=== PATIENT | female | born 1980 | race Caucasian/White ===

== ENCOUNTER 2020-08-03 09:20 | Outpatient (CLI) | payer OTHER ==
[2020-08-03 13:34] LABS: BASOPHILS # (AUTO) 0.1 10^3/uL (0.0-0.1); BASOPHILS % (AUTO) 1.1 %; EOSINOPHILS # (AUTO) 0.1 10^3/uL (0.0-0.7); EOSINOPHILS % (AUTO) 1.4 %; HGB - HEMOGLOBIN 15.9 g/dL (12.0-16.0); LYMPHOCYTES # (AUTO) 1.8 10^3/uL (1.5-3.5); LYMPHOCYTES % (AUTO) 28.8 %; MEAN CORPUSCULAR HEMOGLOBIN 31.7 pg (27.0-31.0); MEAN CORPUSCULAR HGB CONC 33.8 g/dL (32.0-36.0); MEAN CORPUSCULAR VOLUME 93.6 fL (81.0-99.0); MEAN PLATELET VOLUME 10.3 fL (7.9-10.8); MONOCYTES # (AUTO) 0.4 10^3/uL (0.0-1.0); MONOCYTES % (AUTO) 5.8 %; NEUTROPHILS % (AUTO) 62.7 %; PLT - PLATELET COUNT 310 10^3/uL (130-450); RED BLOOD COUNT 5.02 10^6/uL (4.20-5.40); RED CELL DISTRIBUTION WIDTH 12.7 % (12.0-15.0); WHITE BLOOD COUNT 6.4 x10^3/uL (4.8-10.8)
[2020-08-03 13:56] LABS: THYROID STIMULATING HORMONE 1.51 uIU/mL (0.34-5.60)
[2020-08-03 13:59] LABS: FERRITIN 8.4 ng/mL (11.0-306.8)
[2020-08-03 14:05] LABS: % IRON SATURATION 12 % (20-50); ALBUMIN 4.1 g/dL (3.2-5.5); ALBUMIN/GLOBULIN RATIO 1.4 (1.0-2.2); ALKALINE PHOSPHATASE 51 IU/L (42-121); ALT ALANINE AMINOTRANSFERASE 33 IU/L (10-60); AST ASPARTATE AMINOTRANSFERASE 20 IU/L (10-42); BILIRUBIN,TOTAL 0.4 mg/dL (0.2-1.0); BUN - BLOOD UREA NITROGEN 10 mg/dL (6-20); CALCIUM 9.1 mg/dL (8.5-10.3); CARBON DIOXIDE - CO2 22 mmol/L (21-32); CHLORIDE 105 mmol/L (101-111); CHOLESTEROL 171 mg/dL; CREATININE 0.7 mg/dL (0.4-1.0); GFR - MDRD 92 (>89); GLUCOSE 103 mg/dL (70-100); HDL CHOLESTEROL 34 mg/dL; IRON 44 ug/dL (28-170); LDL CHOLESTEROL,CALCULATED 100 mg/dL; LDL/HDL RATIO 2.9 (<4.4); POTASSIUM 3.6 mmol/L (3.5-5.0); SODIUM 138 mmol/L (135-145); TOTAL IRON BINDING CAPACITY 353 ug/dL (250-450); TOTAL PROTEIN 7.1 g/dL (6.7-8.2); TRANSFERRIN 252 mg/dL (192-382); TRIGLYCERIDES 187 mg/dL; VLDL CHOLESTEROL 37 mg/dL
== END 2020-08-03 23:59 | disposition home or self-care (01) ==
LOC: LAB.WCP 09:20
PROVIDERS: ATTEND Registered Nurse
DX: F41.9 Anxiety disorder, unspecified (principal); F32.9 Major depressive disorder, single episode, unspecified; R53.83 Other fatigue
CPT/HCPCS: 36415; 80053; 80061; 82728; 83540; 83721; 84443; 84466; 85025

== ENCOUNTER 2022-03-22 12:18 | Outpatient (CLI) | payer OTHER ==
--- NOTE | 2022-03-22 13:14 | CT Report ---
PROCEDURE: Sinuses INDICATIONS: CHRONIC ETHMOID SINUSITIS TECHNIQUE: Noncontrast 3.0 mm axial images acquired from the frontal sinuses to the mid-sella, with coronal and sagittal reformats. For radiation dose reduction, the following was used: automated exposure control , adjustment of mA and/or kV according to patient size. COMPARISON: None. FINDINGS: Image quality: Excellent. Maxillary Sinuses: No bony remodeling or destruction. Sinuses are clear. The right maxillary sinus is small in size, without abnormal wall thickening. Ethmoid Air Cells: No bony remodeling or destruction. Sinuses are clear. Sphenoid Sinuses: No bony remodeling or destruction. Sinuses are clear. Frontal Sinuses: No bony remodeling or destruction. Sinuses are clear. Ostiomeatal Complexes: Ostiomeatal complexes are patent, yet they are constitutionally narrowed. Pérez ler cells are seen on the left. Miscellaneous: Visualized intra-orbital contents are normal. There is a left-sided yoko bullosa. Mild rightward nasal septal deviation is seen. IMPRESSION: No significant active paranasal sinus disease is seen. Left-sided yoko bullosa, with mild rightward nasal septal deviation. Narrowed ostiomeatal complexes, with Chasidy cell seen on the left. Small size of the right maxillary sinus. Reviewed by: Ravi Eastman MD on 03/22/2022 12:12 PM [facility] Approved by: Ravi Eastman MD on 03/22/2022 12:12 PM [facility] Station ID: [id number]
== END 2022-03-22 12:19 | disposition home or self-care (01) ==
LOC: DI 12:18
PROVIDERS: ATTEND Nurse Practitioner
DX: J34.2 Deviated nasal septum (principal)

== ENCOUNTER 2022-03-26 11:19 | Outpatient (CLI) | payer OTHER ==
[2022-03-26 12:01] VITALS: BP 122/81
== END 2022-03-26 11:20 | disposition home or self-care (01) ==
LOC: MAC.MOP 11:19
PROVIDERS: ATTEND Nurse Practitioner
DX: R00.2 Palpitations (principal)
CPT/HCPCS: 93246

== ENCOUNTER → 2022-04-20 | Outpatient (CLI) | payer OTHER | LOC: MAC.MOP 10:30 | PROVIDERS: ATTEND Nurse Practitioner | DX: I47.1 Supraventricular tachycardia (principal); I49.1 Atrial premature depolarization; I49.3 Ventricular premature depolarization | CPT/HCPCS: 93244 ==

== ENCOUNTER 2022-08-31 00:46 | Outpatient (CLI) | payer OTHER | END 2022-08-31 00:48 | disposition critical access hospital (66) | LOC: EMS 00:46 | DX: I46.9 Cardiac arrest, cause unspecified (principal) | CPT/HCPCS: A0425; A0433 ==

== ENCOUNTER 2022-08-31 00:59 | Emergency (ER) | payer OTHER ==
--- NOTE | 2022-08-31 01:08 | ED Physician Documentation ---
PD HPI CPR - Stated complaint Stated Complaint: CPR, ROSC - History obtained from History obtained from: Family (), EMS - Additional information Additional information: Patient arrives intubated by EMS. HPI is from EMS. Early inpatient stay, patient's arrives to the emergency department I was able to obtain further HPI from patient's . At approximately midnight, patient was sitting in bed awake watching TV with her when, per , patient put her hands to her head, said "ow", and within less than a minute, she laid down on the bed. The did not think anything was necessarily wrong but rapidly she began to exhibit sonorous respirations and at that point the patient realized that she was unconscious and unresponsive. He called 911 would was immediately instructed to start CPR. EMS arrived to find patient was in ventricular fibrillation and they attempted defibrillation with defibrillating shock; unfortunately, patient then went into asystole and thus CPR was started. On the first pulse check, they noted she had ROSC, but before she regained consciousness, she quickly went into pulseless ventricular tachycardia and rapidly again went into asystole. During the ensuing resuscitative efforts, the patient had an IV established and received a total of 6 rounds (1 mg per dose) of epinephrine, 3 ampules of IV lidocaine. She was intubated with a 7.0 ET tube, and an epinephrine drip was subsequently initiated. There was some resistance to intubation, and thus patient was given 2.5 mg of Versed IV by EMS as well as 100 mg IV succinylcholine. Per , patient does not have any medical history, does not take any prescription medications, and no known drug allergies. The only medical history he notes is regarding some seasonal allergies. Review of Systems Unable to obtain: Intubated PD PAST MEDICAL HISTORY - Past Medical History Past Medical History: No - Allergies Allergies/Adverse Reactions: Allergies Allergy/AdvReac Type Severity Reaction Status Date / Time No Known Drug Allergies Allergy Verified 08/31/22 01:11 PD ED PE NORMAL - Vitals Vital signs reviewed: Yes - General General: Well developed/nourished - Cardiac Cardiac: RRR, No murmur - Abdomen Abdomen: Soft, Non distended - Derm Derm: Normal color, Warm and dry - Extremities Extremities: No edema PD ED PE EXPANDED - General General: Unresponsive, Other (endotracheally intubated) - HEENT HEENT: Other (pupils are dilated but equal, sluggish and minimal reaction to light) - Cardiac Cardiac: Regular Rate, Regular Rhythm - Respiratory Respiratory: Other (Breath sounds are equal bilaterally with some mild scattered rhonchi. There is good chest rise with ventilations provided through the ET tube ) - Abdomen Abdomen: No: Distended Results - Vitals Vitals: Vital Signs - 24 hr 08/31/22 08/31/22 08/31/22 01:00 01:03 01:25 Temperature 34.0 C L 36.3 C L 35.3 C L Heart Rate 97 92 101 H Respiratory 29 H 21 26 H Rate Blood Pressure 115/81 H 135/125 H 129/88 H O2 Saturation 100 99 99 08/31/22 08/31/22 08/31/22 01:40 01:42 01:50 Temperature 35.3 C L 35.3 C L Heart Rate 112 H 111 H 99 Respiratory 30 H 28 H Rate Blood Pressure 128/93 H 121/89 H O2 Saturation 87 L 98 08/31/22 08/31/22 08/31/22 01:55 02:10 02:15 Temperature 35.3 C L 35.4 C L 35.4 C L Heart Rate 115 H 126 H 127 H Respiratory 27 H 17 25 H Rate Blood Pressure 121/89 H 81/65 L 76/58 L O2 Saturation 92 96 99 08/31/22 08/31/22 08/31/22 02:30 02:44 02:45 Temperature 35.5 C L 35.4 C L Heart Rate 126 H 126 H 124 H Respiratory 25 H 23 Rate Blood Pressure 82/63 L 100/77 O2 Saturation 98 95 08/31/22 08/31/22 08/31/22 03:00 03:15 03:30 Temperature 35.2 C L 35.0 C L 35.0 C L Heart Rate 120 H 124 H 128 H Respiratory 23 20 21 Rate Blood Pressure 93/79 95/72 97/71 O2 Saturation 100 97 98 Oxygen O2 Source Mechanical ventilator - EKG (time done) No standard instances EKG releavant findings:: EKG personally interpreted by author of this note. Relevant findings are: Rate: Rate (enter#) (97) Rhythm: NSR [place]: Normal Intervals: Prolonged [place] QRS: Normal Ischemia: ST depression (1mm II, III, aVF) Compare to prior EKG: Old EKG unavailable - Labs Labs: Laboratory Tests 08/31/22 08/31/22 08/31/22 01:12 01:20 01:20 WBC 20.4 H RBC 4.70 Hgb 14.0 Hct 46.5 MCV 98.9 MCH 29.8 MCHC 30.1 L RDW 13.0 Plt Count 291 MPV 10.5 Neut # (Auto) Not Reportable Lymph # (Auto) Not Reportable [place] # (Auto) Not Reportable Eos # (Auto) Not Reportable Baso # (Auto) Not Reportable Absolute Nucleated RBC Not Reportable Total Counted 100 Band Neuts % (Manual) 2 Abnorm Lymph % (Manual) 0 Nucleated RBC % Not Reportable Neutrophils # (Manual) 8.0 H Lymphocytes # (Manual) 11.2 H Monocytes # (Manual) 0.6 Eosinophils # (Manual) 0.6 Basophils # (Manual) 0.0 Differential Comment MANUAL DIFFERENTIAL Platelet Estimate NORMAL (130-450,000) RBC Morph Micro Appear NORMAL APPEARANCE PT 12.3 INR 1.1 APTT 137.0 H* Bld Gas Analysis Time Sample Site ABG pH ABG pCO2 ABG pO2 ABG HCO3 ABG Total CO2 ABG O2 Saturation ABG Base Excess Pillo Test Respiration Rate O2 Delivery Device Vent Mode Tidal Volume PEEP Sodium Potassium Chloride Carbon Dioxide Anion Gap BUN Creatinine Estimated GFR (MDRD) Glucose Calcium Total Bilirubin AST ALT Alkaline Phosphatase Troponin I High Sens Total Protein Albumin Globulin Albumin/Globulin Ratio Lipase Urine Color YELLOW Urine Clarity CLEAR Urine pH 6.5 Ur Specific [place] 1.020 Urine Protein NEGATIVE Urine Glucose (UA) NEGATIVE Urine Ketones NEGATIVE Urine Occult Blood NEGATIVE Urine Nitrite NEGATIVE Urine Bilirubin NEGATIVE Urine Urobilinogen 0.2 (NORMAL) Ur Leukocyte Esterase NEGATIVE Ur Microscopic Review NOT INDICATED Urine Culture Comments NOT INDICATED Urine Opiates Screen NEGATIVE Ur Oxycodone Screen NEGATIVE Urine Methadone Screen NEGATIVE Ur Propoxyphene Screen NEGATIVE Ur Barbiturates Screen NEGATIVE Ur Tricyclics Screen NEGATIVE Ur Phencyclidine Scrn NEGATIVE Ur Amphetamine Screen NEGATIVE U Methamphetamines Scrn NEGATIVE U Benzodiazepines Scrn NEGATIVE Urine Cocaine Screen NEGATIVE U Cannabinoids Screen NEGATIVE Serum Ketones SARS-CoV-2 (PCR) 08/31/22 08/31/22 08/31/22 01:20 01:20 01:20 WBC RBC Hgb Hct MCV MCH MCHC RDW Plt Count MPV Neut # (Auto) Lymph # (Auto) [place] # (Auto) Eos # (Auto) Baso # (Auto) Absolute Nucleated RBC Total Counted Band Neuts % (Manual) Abnorm Lymph % (Manual) Nucleated RBC % Neutrophils # (Manual) Lymphocytes # (Manual) Monocytes # (Manual) Eosinophils # (Manual) Basophils # (Manual) Differential Comment Platelet Estimate RBC Morph Micro Appear PT INR APTT Bld Gas Analysis Time Sample Site ABG pH ABG pCO2 ABG pO2 ABG HCO3 ABG Total CO2 ABG O2 Saturation ABG Base Excess Pillo Test Respiration Rate O2 Delivery Device Vent Mode Tidal Volume PEEP Sodium 139 Potassium 3.7 Chloride 107 Carbon Dioxide 7 L* Anion Gap 25.0 H BUN 13 Creatinine 1.2 H Estimated GFR (MDRD) 49 L Glucose 406 H Calcium 8.3 L Total Bilirubin 0.3 AST 128 H ALT 101 H Alkaline Phosphatase 65 Troponin I High Sens 128.8 H* Total Protein 5.6 L Albumin 3.0 L Globulin 2.6 Albumin/Globulin Ratio 1.2 Lipase 61 H Urine Color Urine Clarity Urine pH Ur Specific [place] Urine Protein Urine Glucose (UA) Urine Ketones Urine Occult Blood Urine Nitrite Urine Bilirubin Urine Urobilinogen Ur Leukocyte Esterase Ur Microscopic Review Urine Culture Comments Urine Opiates Screen Ur Oxycodone Screen Urine Methadone Screen Ur Propoxyphene Screen Ur Barbiturates Screen Ur Tricyclics Screen Ur Phencyclidine Scrn Ur Amphetamine Screen U Methamphetamines Scrn U Benzodiazepines Scrn Urine Cocaine Screen U Cannabinoids Screen Serum Ketones NEGATIVE SARS-CoV-2 (PCR) 08/31/22 08/31/22 08/31/22 01:36 02:30 03:01 WBC RBC Hgb Hct MCV MCH MCHC RDW Plt Count MPV Neut # (Auto) Lymph # (Auto) [place] # (Auto) Eos # (Auto) Baso # (Auto) Absolute Nucleated RBC Total Counted Band Neuts % (Manual) Abnorm Lymph % (Manual) Nucleated RBC % Neutrophils # (Manual) Lymphocytes # (Manual) Monocytes # (Manual) Eosinophils # (Manual) Basophils # (Manual) Differential Comment Platelet Estimate RBC Morph Micro Appear PT INR APTT Bld Gas Analysis Time 0230 0302 Sample Site A-LINE A-LINE ABG pH 7.05 L* 7.20 L* ABG pCO2 31 L 36 ABG pO2 91 80 ABG HCO3 8.4 L 13.7 L ABG Total CO2 9.3 L* 14.8 L ABG O2 Saturation 94 93 L ABG Base Excess -21.0 L -13.5 L Pillo Test NOT APPLICABLE NOT APPLICABLE Respiration Rate 18 18 O2 Delivery Device VENTILATOR VENTILATOR Vent Mode ASSIST/CONTROL ASSIST/CONTROL Tidal Volume 450 450 PEEP 5 5 Sodium Potassium Chloride Carbon Dioxide Anion Gap BUN Creatinine Estimated GFR (MDRD) Glucose Calcium Total Bilirubin AST ALT Alkaline Phosphatase Troponin I High Sens Total Protein Albumin Globulin Albumin/Globulin Ratio Lipase Urine Color Urine Clarity Urine pH Ur Specific [place] Urine Protein Urine Glucose (UA) Urine Ketones Urine Occult Blood Urine Nitrite Urine Bilirubin Urine Urobilinogen Ur Leukocyte Esterase Ur Microscopic Review Urine Culture Comments Urine Opiates Screen Ur Oxycodone Screen Urine Methadone Screen Ur Propoxyphene Screen Ur Barbiturates Screen Ur Tricyclics Screen Ur Phencyclidine Scrn Ur Amphetamine Screen U Methamphetamines Scrn U Benzodiazepines Scrn Urine Cocaine Screen U Cannabinoids Screen Serum Ketones SARS-CoV-2 (PCR) NOT DETECTED 08/31/22 08/31/22 03:25 03:25 WBC RBC Hgb Hct MCV MCH MCHC RDW Plt Count MPV Neut # (Auto) Lymph # (Auto) [place] # (Auto) Eos # (Auto) Baso # (Auto) Absolute Nucleated RBC Total Counted Band Neuts % (Manual) Abnorm Lymph % (Manual) Nucleated RBC % Neutrophils # (Manual) Lymphocytes # (Manual) Monocytes # (Manual) Eosinophils # (Manual) Basophils # (Manual) Differential Comment Platelet Estimate RBC Morph Micro Appear PT INR APTT Bld Gas Analysis Time Sample Site ABG pH ABG pCO2 ABG pO2 ABG HCO3 ABG Total CO2 ABG O2 Saturation ABG Base Excess Pillo Test Respiration Rate O2 Delivery Device Vent Mode Tidal Volume PEEP Sodium 140 Potassium 3.9 Chloride 112 H Carbon Dioxide 16 L Anion Gap 12.0 BUN 14 Creatinine 1.2 H Estimated GFR (MDRD) 49 L Glucose 269 H Calcium 7.1 L Total Bilirubin 0.4 AST 233 H ALT 161 H Alkaline Phosphatase 75 Troponin I High Sens 524.3 H* Total Protein 5.4 L Albumin 2.9 L Globulin 2.5 Albumin/Globulin Ratio 1.2 Lipase 42 Urine Color Urine Clarity Urine pH Ur Specific [place] Urine Protein Urine Glucose (UA) Urine Ketones Urine Occult Blood Urine Nitrite Urine Bilirubin Urine Urobilinogen Ur Leukocyte Esterase Ur Microscopic Review Urine Culture Comments Urine Opiates Screen Ur Oxycodone Screen Urine Methadone Screen Ur Propoxyphene Screen Ur Barbiturates Screen Ur Tricyclics Screen Ur Phencyclidine Scrn Ur Amphetamine Screen U Methamphetamines Scrn U Benzodiazepines Scrn Urine Cocaine Screen U Cannabinoids Screen Serum Ketones SARS-CoV-2 (PCR) - Rads (name of study) CTH Relevant Findings:: Prelim report reviewed, EMP independent interpretation of test (I reviewed the images of the CT head immediately after they were performed (patient is still on CT table at that time); I do not see any acute abnormality on the CT head. Specifically, no evidence of intracranial hemorrhage, no mass, no mass effect), See rad report CXR #1 Relevant Findings:: Prelim report reviewed, EMP independent interpretation of test (The ET tube appears to be 7 to 8 cm above the blu, and thus respiratory therapy advances the tube by 2 cm. NGT below diaphragm), See rad report CXR #2 Relevant Findings:: Prelim report reviewed, Critical result, EMP independent interpretation of test (I reviewed the chest x-ray performed portably immediately after it is performed, and the tip of the central line is not in a position that would be consistent with IJ placement (deviates towards midline)), See rad report (I reviewed the chest x-ray shortly after the central line was placed by anesthesia and the previous line placed by me was removed. The tip of the central line now appears to be in proper position and the SVC) CXR #3 Relevant Findings:: Prelim report reviewed, EMP independent interpretation of test (I reviewed the chest x-ray shortly after it was performed; the central line positioning now appears consistent with appropriate right IJ placement with the tip of the central line and physician that we consistent with SVC location), See rad report Procedures - Central Line - Major Central Line Preparation: Unable to obtain consent, Ultrasound used, Sterile prep and drape Central line type: Triple lumen Central line aftercare: Chlorhexidine disc placed, Secured, No pneumothorax, Other (I attempted placement of triple lumen CVC right IJ; I did not see any pulsatile flow during procedure nor after placement and all three lines draw/flushed, but shortly after placement, ED RN notes pulsatile flow in one of the portsblood drawn from line sent for ABG, results c/w arterial placement) PD Medical Decision Making - ED course Complexity details: reviewed results, re-evaluated patient, considered differential, d/w family ED course: Patient arrives intubated after sudden but witnessed cardiopulmonary arrest. In talking with EMS and subsequently, the patient's , it sounds like there was minimal downtime from the witness arrest until CPR was initiated by the per 911 instructions. As noted in HPI, above, there were prolonged resuscitative efforts in the field. Notably, patient had ROSC twice during these resuscitative efforts. On ED arrival, patient has stable vital signs including normotensive readings although she is on an epinephrine drip. She is not responding to any stimuli on ED arrival, and EMS estimates it has been between 10 to 20 minutes since she received the Versed and succinylcholine. Given the HPI noted above, specifically that patient had grabbed her head and indicated she was having some discomfort immediately preceding her cardiopulmonary arrest, a CT head was undertaken early in stay. There were no abnormalities on the CT head that are contributory (incidental note of some sinusitis). EKG evidence is [address] depressions in the inferior leads, but I do not note any clear/significant ST elevations. I attempted to place a triple-lumen central venous catheter in the right internal jugular vein. I did not note any pulsatile flow at any time during the procedure, but the return on drawing from all 3 ports did appear to be a brighter color than would be expected with venous placement. Shortly after I secured the line, ED RN notes pulsatile flow in one of the ports. Thus, a sample of the blood from one of the ports is sent for ABG, with results consistent with arterial placement. The chest x-ray performed after I placed this CBC also would be consistent with improper placement. There was no significant right neck swelling/bulging noted. Anesthesia was consulted, and Natanael Mendoza graciously come to the emergency department and places a right IJ, removing my central line in the process. Patient's vital signs were mostly stable throughout ER stay. There were brief periods of mildly hypotensive readings (systolic blood pressure is occasionally dropping to 80s), but these were corrected with fluid boluses, epinephrine drip, and cessation of the propofol. As she began to exhibit increasingly frequent movement that did appear purposeful, the propofol was restarted, and she required boluses of the propofol as well. Patient would benefit from transfer to a higher level of care. I was initially put in touch with Dr. Jenni Dave, analytical engineer on-call for . He recommends I discussed this case with the hospitalist/dining service inspector at , but agrees that patient would be appropriate for transfer to [facility] if beds are available. I was subsequently put in touch with Dr. Briscoe, hospitalist for [facility] (also covering ICU). Dr. Briscoe accepts patient for transfer to . We discussed initiation of hypothermic protocol, but we were unable to start this in [facility] subsequent to my discussion with Dr. Briscoe; this is because, at that time, the anesthesiologist is placing the central line and placement of hypothermic protocol would interfere with the sterility of said procedure. Shortly after Dr. Santoyo placed the central line, the [facility] crew was here and they would not be able to continue the hypothermic protocol on route. Thus, so as not to further delay patient's transfer, the hypothermic protocol was not initiated - Critical Care Time(min): 80 Time Includes: Direct patient care, Reassess patient, Document care, Coordinate care, Family consult for tx dec, See progress note Data interpretation: Labs, Pulse ox, ABG, CXR, See progress note Procedures included in critical care time: Ventilator mgmt, See progress note Procedures excluded from critical care time: Central IV, See progress note Departure - Departure Disposition: 02 Transfer Acute Care Hosp Clinical Impression: Cardiac arrest Condition: Critical Discharge Date/Time: 08/31/22 04:20
[2022-08-31 01:23] LABS: MUDS CUTOFF CONCENTRATIONS CUTOFF CONC BELOW:
[2022-08-31 01:23] LABS: BASOPHILS % (AUTO) 0.8 %; EOSINOPHILS % (AUTO) 1.3 %; HCT - HEMATOCRIT 46.5 % (37.0-47.0); LYMPHOCYTES % (AUTO) 55.1 %; MEAN CORPUSCULAR HEMOGLOBIN 29.8 pg (27.0-31.0); MEAN CORPUSCULAR HGB CONC 30.1 g/dL (32.0-36.0); MEAN CORPUSCULAR VOLUME 98.9 fL (81.0-99.0); MEAN PLATELET VOLUME 10.5 fL (7.9-10.8); NEUTROPHILS % (AUTO) 31.6 %; PLT - PLATELET COUNT 291 10^3/uL (130-450); WHITE BLOOD COUNT 20.4 x10^3/uL (4.8-10.8)
--- NOTE | 2022-08-31 01:26 | XRAY Report ---
PROCEDURE: Chest 1 View X-Ray INDICATIONS: CPR TECHNIQUE: One view of the chest was acquired. COMPARISON: None. FINDINGS: Surgical changes and devices: There is an endotracheal tube with the tip approximately 6.7 cm on the blu. A nasogastric tube extends into the stomach with the tip not included on the current study. Lungs and pleura: There are bilateral indistinct and glass opacities within the upper lung zones whi ch may represent pulmonary edema or pulmonary contusions. No definite pleural effusions or pneumothor ax, with evaluation limited by supine technique. Mediastinum: Mediastinal contours appear slightly widened likely due to portable supine technique an d low lung volumes. Heart size is normal. Bones and chest wall: No displaced fractures identified. No suspicious bony lesions. Overlying soft tissues appear unremarkable. IMPRESSION: 1. Endotracheal tube tip approximately 6.7 cm from the blu. Recommend advancement by approximately 2 cm. 2. Bilateral hazy indistinct opacities within the upper lung zones compatible with pulmonary edema or pulmonary contusions. Reviewed by: Alfonso Diane MD on 08/31/2022 1:24 AM PST Approved by: Alfonso Diane MD on 08/31/2022 1:24 AM PST Station ID: [id number]
[2022-08-31 01:28] LABS: BILIRUBIN,URINE NEGATIVE (NEGATIVE); GLUCOSE, URINE (UA) NEGATIVE (NEGATIVE); KETONES,URINE (UA) NEGATIVE (NEGATIVE); LEUKOCYTE ESTERASE, URINE NEGATIVE (NEGATIVE); NITRITE,URINE NEGATIVE (NEGATIVE); OCCULT BLOOD,URINE NEGATIVE (NEGATIVE); PH,URINE 6.5 PH (5.0-7.5); PROTEIN,URINE NEGATIVE (NEGATIVE); UROBILINOGEN,URINE 0.2 (NORMAL) E.U./dL (NORMAL)
[2022-08-31 01:30] LABS: ABNORMAL LYMPHS % (MANUAL) 0 %
[2022-08-31 01:30] LABS: CLARITY,URINE CLEAR (CLEAR)
[2022-08-31 01:31] LABS: INR 1.1 (0.8-1.2); PT - PROTHROMBIN TIME 12.3 secs (9.9-12.6)
[2022-08-31 01:43] LABS: AMPHETAMINE SCREEN,URINE NEGATIVE (NEGATIVE); BARBITURATE SCREEN,UR NEGATIVE (NEGATIVE); BENZODIAZEPINES SCREEN, URINE NEGATIVE (NEGATIVE); COCAINE SCREEN URINE NEGATIVE (NEGATIVE); METHADONE SCREEN, URINE NEGATIVE (NEGATIVE); METHAMPHETAMINES SCREEN, URINE NEGATIVE (NEGATIVE); OPIATE SCREEN, URINE NEGATIVE (NEGATIVE); OXYCODONE SCREEN, URINE NEGATIVE (NEGATIVE); PROPOXYPHENE SCREEN, URINE NEGATIVE (NEGATIVE); THC CANNABINOID SCREEN, URINE NEGATIVE (NEGATIVE); TRICYCLIC ANTIDEPRESSANT,URINE NEGATIVE (NEGATIVE)
[2022-08-31 01:44] LABS: ALBUMIN/GLOBULIN RATIO 1.2 (1.0-2.2); BILIRUBIN,TOTAL 0.3 mg/dL (0.2-1.0); CALCIUM 8.3 mg/dL (8.5-10.3); CREATININE 1.2 mg/dL (0.4-1.0); POTASSIUM 3.7 mmol/L (3.5-5.0); TOTAL PROTEIN 5.6 g/dL (6.7-8.2)
--- NOTE | 2022-08-31 01:45 | CT Report ---
PROCEDURE: HEAD WO INDICATIONS: unconscious, unresponsive TECHNIQUE: Noncontrast 4.5 mm thick angled axial sections acquired from the foramen magnum to the vertex. For r adiation dose reduction, the following was used: automated exposure control, adjustment of mA and/or kV according to patient size. COMPARISON: None. FINDINGS: Image quality: There is motion artifact limiting evaluation. CSF spaces: Basal cisterns are patent. No extra-axial fluid collections. Ventricles are normal in size and shape. Brain: No definite intracranial hemorrhage, mass, or mass effect. [place]-white matter interface appea rs grossly preserved. Skull and face: Calvarium and visualized facial bones are intact, without suspicious lesions. Sinuses: Visualized sinuses demonstrate mild mucosal thickening within the ethmoid and right maxilla ry sinuses. The mastoid air cells are clear. There is a partially visualized fluid within the nasopha rynx likely related to intubation. IMPRESSION: 1. No definite acute intracranial abnormality. Reviewed by: Alfonso Diane MD on 08/31/2022 1:43 AM PST Approved by: Alfonso Diane MD on 08/31/2022 1:43 AM PST Station ID: [id number]
[2022-08-31] MEDS ORDERED: PROPOFOL 1000 MG/100 ML 1,000 MG/100 ML BOTTLE IV ONE (02:02)
[2022-08-31 02:04] LABS: BAND NEUTROPHILS % (MANUAL) 2 %; DIFFERENTIAL COMMENT MANUAL DIFFERENTIAL; EOSINOPHILS # (MANUAL) 0.6 10^3/uL (0-0.7); LYMPHOCYTES # (MANUAL) 11.2 10^3/uL (1.5-3.5); LYMPHOCYTES % (MANUAL) 55 %; MONOCYTES # (MANUAL) 0.6 10^3/uL (0.0-1.0); PLATELET ESTIMATE, MANUAL NORMAL (130-450,000) (NORMAL); RBC MORPHOLOGY (MULTIPLE) NORMAL APPEARANCE (NORMAL)
[2022-08-31] MEDS ORDERED: MIDAZOLAM 2 MG/2 ML VIAL ONE (02:09)
[2022-08-31] MEDS ORDERED: EPINEPHrine 1 MG/ML AMP ONE ×2 (02:21→03:44)
[2022-08-31 02:37] LABS: ABG HCO3 8.4 mmol/L (22.0-26.0); ABG OXYGEN SATURATION 94 % (94-98); ABG PCO2 31 mmHg (34-45); ABG PO2 91 mmHg (80-100)
[2022-08-31 02:39] LABS: ABG MODE OF VENTILATION ASSIST/CONTROL; ABG PH 7.05 (7.35-7.45); ABG RESPIRATORY RATE 18 b/min
[2022-08-31] MEDS ORDERED: EPINEPHRINE IV STA (02:39)
[2022-08-31] MEDS ORDERED: SODIUM CHLORIDE 0.9% IV STA (02:39)
[2022-08-31] MEDS ORDERED: SODIUM BICARBONATE ABBOJECT 50 MEQ/50 ML SYRINGE IVP STA (02:39)
[2022-08-31 02:40] LABS: ABG TCO2 9.3 MMOL/L (21.0-29.0)
[2022-08-31 03:03] LABS: ABG BASE EXCESS -13.5 mmol/L (-2.0-3.0); ABG HCO3 13.7 mmol/L (22.0-26.0); ABG OXYGEN SATURATION 93 % (94-98); ABG PCO2 36 mmHg (34-45); ABG PO2 80 mmHg (80-100); ABG TCO2 14.8 MMOL/L (21.0-29.0)
[2022-08-31 03:04] LABS: ABG MODE OF VENTILATION ASSIST/CONTROL
[2022-08-31 03:05] LABS: ABG RESPIRATORY RATE 18 b/min
[2022-08-31 03:32] VITALS: BP 97/71
[2022-08-31] MEDS ORDERED: EPINEPHrine 4 MG in DEXTROSE 5% 246 ML IV STA (03:37)
[2022-08-31 03:41] LABS: ALBUMIN 2.9 g/dL (3.2-5.5); ALBUMIN/GLOBULIN RATIO 1.2 (1.0-2.2); BILIRUBIN,TOTAL 0.4 mg/dL (0.2-1.0); CALCIUM 7.1 mg/dL (8.5-10.3); CREATININE 1.2 mg/dL (0.4-1.0); POTASSIUM 3.9 mmol/L (3.5-5.0); TOTAL PROTEIN 5.4 g/dL (6.7-8.2)
[2022-08-31] MEDS ORDERED: MIDAZOLAM 10 MG/2 ML VIAL IVP STA (03:46)
[2022-08-31] MEDS ORDERED: PROPOFOL 1000 MG/100 ML 1,000 MG/100 ML BOTTLE IV STA (03:46)
[2022-08-31] MEDS ORDERED: SODIUM CHLORIDE 0.9% 1,000 ML IV STA (03:46)
[2022-08-31] MEDS ORDERED: PROPOFOL 200 MG/20 ML VIAL IVP STA ×2 (03:47)
--- NOTE | 2022-08-31 04:21 | ANESTHESIA PROCEDURE NOTE ---
Anesth Central Line Template - Central Line Central Line Preparation: Unable to obtain consent, Time out completed, Ultra sound used, Sterile prep and drape Central line location: Right IJ Central line type: Triple lumen Central line catheter tip site resides: Superior vena cava (SVC) Central line aftercare: Chlorhexidine disc placed, Secured, Placement confirmed, No pneumothorax, No complications, Bundle checklist complete, Pt tolerated well, Other Other Info/Details: R neck prep w/existing arterial CVL left in place. IJ access w/US. Wire thread without ectopy, scalpel, dilation, placement of cath. 18@skin, secured after confirming ports aspirate/flush easily. RN assist with holding pressure after arterial CVL removed. Bio patch and tegaderm to site after 5 mins and hemostasis. PCXR confirms placement. OK to use.
--- NOTE | 2022-08-31 08:09 | XRAY Report ---
PROCEDURE: Chest for Line Placement INDICATIONS: central line placement TECHNIQUE: One view of the chest was acquired. COMPARISON: CXR 08/31/2022 at 1241 hours. FINDINGS: Surgical changes and devices: -Right IJ central venous line projects at the upper mediastinum midline. -Endotracheal tube in the mid trachea. -Enteric tube coursing into the stomach. -External defibrillator pads. Lungs and pleura: No pleural effusions or pneumothorax. Hazy airspace opacity bilaterally. Mediastinum: Mediastinal contours appear unchanged. Heart size is within normal limits. Bones and chest wall: No suspicious bony lesions. Overlying soft tissues appear unremarkable. IMPRESSION: 1. Right IJ central venous line projects at the upper mediastinum midline. Recommend clinical correla tion with venous blood to ensure a central venous line rather than arterial placement. 2. Endotracheal tube in the mid trachea. Enteric tube coursing into the stomach. 3. Bilateral hazy opacity. Suspect pulmonary edema. This report is concordant with the overnight preliminary interpretation. Reviewed by: Vivek Dover MD on 08/31/2022 8:08 AM [facility] [place] Approved by: Vivek Dover MD on 08/31/2022 8:08 AM [facility] [place] Station ID: [id number]
--- NOTE | 2022-08-31 08:12 | XRAY Report ---
PROCEDURE: Chest for Line Placement INDICATIONS: New central line placed TECHNIQUE: One view of the chest was acquired. COMPARISON: CXR earlier today x2. FINDINGS: Surgical changes and devices: -Right IJ central venous line with the catheter tip projecting at the middle third of the SVC. -Endotracheal tube with the tip projecting in the mid trachea. -Enteric tube coursing into the stomach. -External defibrillator pads. Lungs and pleura: No significant pleural effusions. No pneumothorax. Bilateral hazy opacity. Mediastinum: Mediastinal contours appear unchanged. Heart size is normal. Bones and chest wall: No suspicious bony lesions. Overlying soft tissues appear unremarkable. IMPRESSION: Right IJ central venous line projects at the middle third of the SVC in expected position. Possible mild pulmonary edema. No significant discrepancy with the overnight preliminary interpretation. Reviewed by: Vivke Dover MD on 08/31/2022 8:11 AM [facility] Approved by: Vivek Dover MD on 08/31/2022 8:11 AM [facility] Station ID: [id number]
== END 2022-08-31 04:20 | disposition short-term general hospital (02) ==
LOC: EDUNIT# → ED 00:59
DX: I46.9 Cardiac arrest, cause unspecified (principal); Z20.822 Contact with and (suspected) exposure to COVID-19
CPT/HCPCS: 36415; 36556; 51702; 80053; 80306; 81001; 81003; 82009; 82803; 83690; 84484; 85025; 85610; 85730; 87086; 93005; 94002; 94770; 99291; 99292

== ENCOUNTER 2022-10-08 11:28 | Outpatient (CLI) | payer OTHER ==
[2022-10-08 17:37] LABS: BASOPHILS % (AUTO) 0.5 %; EOSINOPHILS # (AUTO) 0.1 10^3/uL (0.0-0.7); EOSINOPHILS % (AUTO) 1.1 %; HCT - HEMATOCRIT 41.4 % (37.0-47.0); HGB - HEMOGLOBIN 13.2 g/dL (12.0-16.0); LYMPHOCYTES # (AUTO) 1.8 10^3/uL (1.5-3.5); LYMPHOCYTES % (AUTO) 22.7 %; MEAN CORPUSCULAR HEMOGLOBIN 29.2 pg (27.0-31.0); MEAN CORPUSCULAR HGB CONC 31.9 g/dL (32.0-36.0); MEAN CORPUSCULAR VOLUME 91.6 fL (81.0-99.0); MEAN PLATELET VOLUME 10.4 fL (7.9-10.8); MONOCYTES # (AUTO) 0.5 10^3/uL (0.0-1.0); MONOCYTES % (AUTO) 5.6 %; NEUTROPHILS # (AUTO) 5.6 10^3/uL (1.5-6.6); NEUTROPHILS % (AUTO) 69.8 %; PLT - PLATELET COUNT 287 10^3/uL (130-450); RED BLOOD COUNT 4.52 10^6/uL (4.20-5.40)
[2022-10-08 17:46] LABS: ALBUMIN 3.9 g/dL (3.2-5.5); ALBUMIN/GLOBULIN RATIO 1.3 (1.0-2.2); BILIRUBIN,TOTAL 0.4 mg/dL (0.2-1.0); CREATININE 0.6 mg/dL (0.4-1.0); POTASSIUM 4.1 mmol/L (3.5-5.0); TOTAL PROTEIN 6.8 g/dL (6.7-8.2)
== END 2022-10-08 11:29 | disposition home or self-care (01) ==
LOC: LAB.N 11:28
PROVIDERS: ATTEND Nurse Practitioner
DX: R74.8 Abnormal levels of other serum enzymes (principal)
CPT/HCPCS: 36415; 80053; 85025

== ENCOUNTER 2022-10-10 11:53 | Outpatient (CLI) | payer OTHER | END 2022-10-10 11:54 | disposition critical access hospital (66) | LOC: EMS 11:53 | DX: R51.9 Headache, unspecified (principal); M54.2 Cervicalgia; Y04.2XXA Assault by strike against or bumped into by another person, initial encounter; Y92.009 Unspecified place in unspecified non-institutional (private) residence as the place of occurrence of the external cause | CPT/HCPCS: A0425; A0429 ==

== ENCOUNTER 2022-10-10 12:19 | Emergency (ER) | payer OTHER ==
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
[2022-10-10] MEDS ORDERED: MECLIZINE 12.5 MG TABLET PO STA (14:36)
[2022-10-10 14:51] VITALS: BP 128/94
== END 2022-10-10 14:57 | disposition home or self-care (01) ==
LOC: EDUNIT# → ED 12:19
DX: S00.531A Contusion of lip, initial encounter (principal); Y04.2XXA Assault by strike against or bumped into by another person, initial encounter; Y93.89 Activity, other specified; R42 Dizziness and giddiness; I69.354 Hemiplegia and hemiparesis following cerebral infarction affecting left non-dominant side
CPT/HCPCS: 70450; 70486; 99283; 99284; A9270

== ENCOUNTER 2022-10-15 12:32 | Outpatient (CLI) | payer OTHER | END 2022-10-15 23:59 | disposition critical access hospital (66) | LOC: EMS 12:32 | DX: R00.2 Palpitations (principal); R07.9 Chest pain, unspecified; F41.9 Anxiety disorder, unspecified | CPT/HCPCS: A0425; A0428 ==

== ENCOUNTER 2022-10-15 12:50 | Emergency (ER) | payer OTHER ==
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
[2022-10-15 13:42] LABS: BILIRUBIN,URINE NEGATIVE (NEGATIVE); GLUCOSE, URINE (UA) NEGATIVE (NEGATIVE); KETONES,URINE (UA) NEGATIVE (NEGATIVE); LEUKOCYTE ESTERASE, URINE NEGATIVE (NEGATIVE); NITRITE,URINE NEGATIVE (NEGATIVE); OCCULT BLOOD,URINE NEGATIVE (NEGATIVE); PROTEIN,URINE NEGATIVE (NEGATIVE); UROBILINOGEN,URINE 0.2 (NORMAL) E.U./dL (NORMAL)
[2022-10-15 13:52] LABS: CLARITY,URINE CLEAR (CLEAR)
[2022-10-15 13:52] LABS: BASOPHILS # (AUTO) 0.1 10^3/uL (0.0-0.1); BASOPHILS % (AUTO) 0.9 %; EOSINOPHILS # (AUTO) 0.1 10^3/uL (0.0-0.7); EOSINOPHILS % (AUTO) 1.4 %; HCT - HEMATOCRIT 37.4 % (37.0-47.0); HGB - HEMOGLOBIN 11.9 g/dL (12.0-16.0); LYMPHOCYTES % (AUTO) 33.9 %; MEAN CORPUSCULAR HEMOGLOBIN 28.7 pg (27.0-31.0); MEAN CORPUSCULAR HGB CONC 31.8 g/dL (32.0-36.0); MEAN CORPUSCULAR VOLUME 90.1 fL (81.0-99.0); MONOCYTES # (AUTO) 0.4 10^3/uL (0.0-1.0); MONOCYTES % (AUTO) 6.6 %; NEUTROPHILS # (AUTO) 3.3 10^3/uL (1.5-6.6); PLT - PLATELET COUNT 235 10^3/uL (130-450); RED BLOOD COUNT 4.15 10^6/uL (4.20-5.40); RED CELL DISTRIBUTION WIDTH 12.8 % (12.0-15.0); WHITE BLOOD COUNT 5.8 x10^3/uL (4.8-10.8)
--- NOTE | 2022-10-15 14:29 | XRAY Report ---
PROCEDURE: Chest 1 View X-Ray INDICATIONS: Chest Pain TECHNIQUE: One view of the chest was acquired. COMPARISON: Chest x-ray 08/31/2022 FINDINGS: Surgical changes and devices: Pacemaker. Lungs and pleura: No pleural effusions or pneumothorax. Lungs are clear. Mediastinum: Mediastinal contours appear normal. Heart size is normal. Bones and chest wall: No suspicious bony lesions. Overlying soft tissues appear unremarkable. IMPRESSION: No acute pulmonary process. Reviewed by: Steffi Marroquin MD on 10/15/2022 2:28 PM PDT Approved by: Steffi Marroquin MD on 10/15/2022 2:28 PM PDT Station ID: [id number]
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
[2022-10-15] MEDS ORDERED: LORazepam 1 MG TABLET PO STA (15:10)
[2022-10-15 15:50] LABS: ALBUMIN 4.1 g/dL (3.2-5.5); ALBUMIN/GLOBULIN RATIO 1.4 (1.0-2.2); BILIRUBIN,TOTAL 0.6 mg/dL (0.2-1.0); CALCIUM 9.2 mg/dL (8.5-10.3); CREATININE 0.7 mg/dL (0.4-1.0); MAGNESIUM 1.9 mg/dL (1.7-2.8); POTASSIUM 3.9 mmol/L (3.5-5.0)
--- NOTE | 2022-10-15 17:48 | ED Physician Documentation ---
ED Addendum - Addendum Addendum: 10/15/22 17:[address] Melchor at shift change. We were waiting for her AICD to be interrogated because of occasional heart flutters. The interrogation was received and she is having not infrequent episodes of short SVTs. I will increase her metoprolol from 50 up to 75 mg long-acting a day pending follow-up with her lead miner. I advised the of the need to follow-up with both her lead miner and her neurologist given her current issues. Disposition: Discharged home Condition: Stable
[2022-10-15 17:59] VITALS: BP 123/86
== END 2022-10-15 17:59 | disposition home or self-care (01) ==
LOC: EDUNIT# → ED 12:50
DX: R07.89 Other chest pain (principal); I69.398 Other sequelae of cerebral infarction; R42 Dizziness and giddiness; I25.2 Old myocardial infarction
CPT/HCPCS: 36415; 70450; 71045; 80053; 81003; 83690; 83735; 83880; 84484; 85025; 93005; 99284; J8499; 81001; 87086

== ENCOUNTER 2023-04-15 10:43 | Outpatient (CLI) | payer OTHER ==
[2023-04-15 18:16] LABS: BASOPHILS # (AUTO) 0.1 10^3/uL (0.0-0.1); BASOPHILS % (AUTO) 1.4 %; EOSINOPHILS # (AUTO) 0.1 10^3/uL (0.0-0.7); EOSINOPHILS % (AUTO) 1.4 %; HCT - HEMATOCRIT 40.2 % (37.0-47.0); LYMPHOCYTES # (AUTO) 1.4 10^3/uL (1.5-3.5); LYMPHOCYTES % (AUTO) 29.4 %; MEAN CORPUSCULAR HEMOGLOBIN 26.9 pg (27.0-31.0); MEAN CORPUSCULAR HGB CONC 29.9 g/dL (32.0-36.0); MEAN CORPUSCULAR VOLUME 90.1 fL (81.0-99.0); MEAN PLATELET VOLUME 11.6 fL (7.9-10.8); MONOCYTES # (AUTO) 0.4 10^3/uL (0.0-1.0); MONOCYTES % (AUTO) 7.4 %; NEUTROPHILS # (AUTO) 2.9 10^3/uL (1.5-6.6); NEUTROPHILS % (AUTO) 60.2 %; RED BLOOD COUNT 4.46 10^6/uL (4.20-5.40); RED CELL DISTRIBUTION WIDTH 15.2 % (12.0-15.0); WHITE BLOOD COUNT 4.9 x10^3/uL (4.8-10.8)
[2023-04-15 18:38] LABS: SLIDE REVIEW? Indicated
[2023-04-15 18:47] LABS: ALBUMIN 4.3 g/dL (3.2-5.5)
[2023-04-15 18:51] LABS: ALBUMIN/GLOBULIN RATIO 1.6 (1.0-2.2); BILIRUBIN,TOTAL 0.4 mg/dL (0.2-1.0); CALCIUM 9.1 mg/dL (8.5-10.3); CREATININE 0.8 mg/dL (0.6-1.3); POTASSIUM 4.4 mmol/L (3.5-4.5)
[2023-04-15 18:52] LABS: THYROID STIMULATING HORMONE 0.39 uIU/mL (0.34-5.60)
[2023-04-15 21:05] LABS: PLATELET ESTIMATE, MANUAL NORMAL (130-450,000) (NORMAL); PLATELET MORPHOLOGY PLATELET CLUMPING (NORMAL); RBC MORPHOLOGY (MULTIPLE) NORMAL APPEARANCE (NORMAL)
== END 2023-04-15 10:44 | disposition home or self-care (01) ==
LOC: LAB.N 10:43
PROVIDERS: ATTEND Nurse Practitioner
DX: R74.8 Abnormal levels of other serum enzymes (principal); F41.1 Generalized anxiety disorder; D64.9 Anemia, unspecified; R53.1 Weakness
CPT/HCPCS: 36415; 80050; 82607

== ENCOUNTER 2023-09-16 09:46 | Outpatient (CLI) | payer OTHER ==
[2023-09-16 12:28] LABS: CHOL/HDL RATIO 3.6 (<4.4); CHOLESTEROL 158 mg/dL; HDL CHOLESTEROL 44 mg/dL; LDL CHOLESTEROL,CALCULATED 72 mg/dL; LDL/HDL RATIO 1.6 (<4.4); TRIGLYCERIDES 212 mg/dL (48-352); VLDL CHOLESTEROL 42 mg/dL
== END 2023-09-16 09:47 | disposition home or self-care (01) ==
LOC: LAB.N 09:46
PROVIDERS: ATTEND Internal Medicine Cardiovascular Disease
DX: E88.810 Metabolic syndrome (principal)
CPT/HCPCS: 36415; 80061; 83721

== ENCOUNTER 2023-10-20 10:04 | Outpatient (CLI) | payer OTHER, MEDICAID | END 2023-10-20 23:59 | disposition short-term general hospital (02) | LOC: EMS 10:04 | DX: R55 Syncope and collapse (principal); R52 Pain, unspecified; S00.11XA Contusion of right eyelid and periocular area, initial encounter; W18.39XA Other fall on same level, initial encounter; Y92.008 Other place in unspecified non-institutional (private) residence as the place of occurrence of the external cause | CPT/HCPCS: A0425; A0427 ==

== ENCOUNTER 2024-01-08 09:03 | Outpatient (CLI) | payer OTHER, MEDICAID ==
[2024-01-08 12:22] LABS: BASOPHILS # (AUTO) 0.1 10^3/uL (0.0-0.1); BASOPHILS % (AUTO) 1.5 %; EOSINOPHILS # (AUTO) 0.1 10^3/uL (0.0-0.7); EOSINOPHILS % (AUTO) 1.9 %; HCT - HEMATOCRIT 32.7 % (37.0-47.0); HGB - HEMOGLOBIN 9.9 g/dL (12.0-16.0); LYMPHOCYTES # (AUTO) 1.6 10^3/uL (1.5-3.5); LYMPHOCYTES % (AUTO) 34.7 %; MEAN CORPUSCULAR HEMOGLOBIN 23.3 pg (27.0-31.0); MEAN CORPUSCULAR HGB CONC 30.3 g/dL (32.0-36.0); MEAN CORPUSCULAR VOLUME 76.9 fL (81.0-99.0); MEAN PLATELET VOLUME 10.3 fL (7.9-10.8); MONOCYTES # (AUTO) 0.4 10^3/uL (0.0-1.0); MONOCYTES % (AUTO) 7.8 %; NEUTROPHILS # (AUTO) 2.5 10^3/uL (1.5-6.6); NEUTROPHILS % (AUTO) 53.9 %; PLT - PLATELET COUNT 293 10^3/uL (130-450); RED BLOOD COUNT 4.25 10^6/uL (4.20-5.40); RED CELL DISTRIBUTION WIDTH 16.9 % (12.0-15.0); WHITE BLOOD COUNT 4.6 x10^3/uL (4.8-10.8)
[2024-01-08 12:47] LABS: CA 125 39.1 U/mL (0.5-35.0)
[2024-01-08 12:54] LABS: ALBUMIN 4.4 g/dL (3.2-5.5); ALBUMIN/GLOBULIN RATIO 1.5 (1.0-2.2); BILIRUBIN,TOTAL 0.5 mg/dL (0.2-1.0); CALCIUM 9.6 mg/dL (8.5-10.3); CREATININE 0.7 mg/dL (0.6-1.3); POTASSIUM 3.9 mmol/L (3.5-4.5); THYROID STIMULATING HORMONE 1.64 uIU/mL (0.34-5.60); TOTAL PROTEIN 7.3 g/dL (6.4-8.9)
[2024-01-08 12:58] LABS: BILIRUBIN,URINE NEGATIVE (NEGATIVE); GLUCOSE, URINE (UA) NEGATIVE (NEGATIVE); KETONES,URINE (UA) NEGATIVE (NEGATIVE); LEUKOCYTE ESTERASE, URINE MODERATE (NEGATIVE); NITRITE,URINE NEGATIVE (NEGATIVE); OCCULT BLOOD,URINE MODERATE (NEGATIVE); PROTEIN,URINE NEGATIVE (NEGATIVE); UROBILINOGEN,URINE 0.2 (NORMAL) E.U./dL (NORMAL)
[2024-01-08 13:18] LABS: CLARITY,URINE HAZY (CLEAR)
[2024-01-08 13:33] LABS: BACTERIA,URINE Moderate /HPF (None Seen); EPITHELIAL CELLS,UR FEW Transitional /HPF (<= Few); SQUAMOUS EPITHELIAL CELL,UR MOD Squamous (<= Few); WBC,URINE >25 /HPF (0-5)
[2024-01-09 10:17] LABS: CHOL/HDL RATIO 2.5 (<4.4); CHOLESTEROL 103 mg/dL; HDL CHOLESTEROL 42 mg/dL; LDL CHOLESTEROL,CALCULATED 30 mg/dL; LDL/HDL RATIO 0.7 (<4.4); TRIGLYCERIDES 156 mg/dL; VLDL CHOLESTEROL 31 mg/dL
== END 2024-01-08 09:04 | disposition home or self-care (01) ==
LOC: LAB.N 09:03
PROVIDERS: ATTEND Nurse Practitioner
DX: N83.292 Other ovarian cyst, left side (principal); E78.5 Hyperlipidemia, unspecified; Z79.899 Other long term (current) drug therapy; I26.99 Other pulmonary embolism without acute cor pulmonale; D64.9 Anemia, unspecified; R74.8 Abnormal levels of other serum enzymes; R30.0 Dysuria; R53.83 Other fatigue
CPT/HCPCS: 36415; 80050; 80061; 81001; 81003; 83721; 84439; 86304; 86305; 87086

== ENCOUNTER 2024-03-05 03:11 | Outpatient (CLI) | payer OTHER, MEDICAID | END 2024-03-05 03:12 | disposition EMS.NT | LOC: EMS 03:11 | DX: M79.602 Pain in left arm (principal); M25.512 Pain in left shoulder; W18.39XA Other fall on same level, initial encounter; Y92.009 Unspecified place in unspecified non-institutional (private) residence as the place of occurrence of the external cause ==